=== PATIENT | male | born 1985 | race African-American/Black ===

== ENCOUNTER 2020-05-26 17:07 | Emergency (ER) | payer OTHER ==
[2020-05-26 17:58] VITALS: BP 126/71
--- NOTE | 2020-05-26 18:02 | ER Document Report ---
ED Medical Screen (RME) - General Chief Complaint: S/S of Possible Stroke Stated Complaint: HANDS,LEGS NUMBNESS Time Seen by Provider: 05/26/20 17:50 Primary Care Provider: KEVIN GARVEY [Primary Care Provider] - Follow up as needed Mode of Arrival: Ambulatory Information source: Patient Notes: 34-year-old man presents to ED for complaint of numbness to both arms and legs. He states he was at work when also he did not feel well he told his fellow fellow worker he did not feel well he states he was numb to his arms and legs and then he woke up at his dad's house. He states he remembers being okay at 3:00 but does not know what happened from then till when he woke up at his dad's house with somebody over him with a bag telling him to wake up to wake up wake up. He states he does not know how he got to his dad's house he does not know somebody took him or if he drove. I have greeted and performed a rapid initial assessment of this patient. A comprehensive ED assessment and evaluation of the patient, analysis of test results and completion of medical decision making process will be conducted by an additional ED providers. - Related Data Allergies/Adverse Reactions: No Known Allergies Allergy (Verified 05/26/20 17:51) Past Medical History - Social History Chew tobacco use (# tins/day): No Frequency of alcohol use: None Drug Abuse: None Physical Exam - Vital signs Vitals: Temp Pulse Resp BP Pulse Ox 97.6 F 89 18 130/79 H 96 05/26/20 17:15 05/26/20 17:15 05/26/20 17:15 05/26/20 17:15 05/26/20 17:15 Course - Vital Signs Vital signs: Temp Pulse Resp BP Pulse Ox 97.5 F 79 16 126/71 H 98 05/26/20 17:52 05/26/20 17:51 05/26/20 17:51 05/26/20 17:51 05/26/20 17:51 Doctor's Discharge - Discharge Referrals: KEVIN GARVEY [Primary Care Provider] - Follow up as needed
--- NOTE | 2020-05-26 18:30 | RADIOLOGY REPORT (SQ) ---
EXAM DESCRIPTION: CT HEAD WITHOUT IMAGES COMPLETED DATE/TIME: 05/26/2020 6:17 pm REASON FOR STUDY: Is felt numb then woke up at dad's house possible COMPARISON: None. TECHNIQUE: Axial images acquired through the brain without intravenous contrast. Images reviewed wit h bone, brain and subdural windows. Images stored on PACS. All CT scanners at this facility use dose modulation, iterative reconstruction, and/or weight based d osing when appropriate to reduce radiation dose to as low as reasonably achievable (ALARA). [facility]: Dose Right [facility]: CareDose [facility]: Dose Right [facility]: Teradose 4D [facility]: HCDC RADIATION DOSE: CT Rad equipment meets quality standard of care and radiation dose reduction techniq ues were employed. CTDIvol: 53.2 mGy. DLP: 1017 mGy-cm.. LIMITATIONS: None. FINDINGS: VENTRICLES: Normal size and contour. CEREBRUM: No masses. No hemorrhage. No midline shift. Age appropriate white matter. No evidence for a cute infarction. CEREBELLUM: No masses. No hemorrhage. No alteration of density. No evidence for acute infarction. EXTRA-AXIAL SPACES: No fluid collections. ORBITS AND GLOBE: No intra- or extraconal masses. Normal contour of globe without masses. CALVARIUM: No fracture. PARANASAL SINUSES: No fluid or mucosal thickening. SOFT TISSUES: No mass or hematoma. OTHER: No other significant finding. IMPRESSION: NO ACUTE INTRACRANIAL FINDINGS. EVIDENCE OF ACUTE STROKE: NO. COMMENT: Results were called to the emergency room at 1825 hours. TECHNICAL DOCUMENTATION: JOB ID: [id number] [place]-72 Quality ID # [id number]: Final reports with documentation of one or more dose reduction techniques (e.g., Au tomated exposure control, adjustment of the mA and/or kV according to patient size, use of iterative reconstruction technique) 2010 [employer]- All Rights Reserved Reading location - IP/workstation name: [email or web address]
--- NOTE | 2020-05-26 18:31 | RADIOLOGY REPORT (SQ) ---
EXAM DESCRIPTION: CHEST SINGLE VIEW IMAGES COMPLETED DATE/TIME: 05/26/2020 6:19 pm REASON FOR STUDY: Is felt numb then woke up at dad's house possible COMPARISON: None. TECHNIQUE: Single frontal radiographic view of the chest acquired. NUMBER OF VIEWS: One view. LIMITATIONS: None. FINDINGS: LUNGS AND PLEURA: No pneumothorax. No consolidation or pleural effusion. MEDIASTINUM AND HILAR STRUCTURES: No contour abnormalities. HEART AND VASCULAR STRUCTURES: Heart normal size. BONES: No acute findings. HARDWARE: None in the chest. OTHER: No other significant finding. IMPRESSION: NO ACUTE FINDINGS. TECHNICAL DOCUMENTATION: JOB ID: [id number] [place]-72 2010 [employer]- All Rights Reserved Reading location - IP/workstation name: [email or web address]
[2020-05-26 18:47] LABS: ABSOLUTE EOSINOPHILS # (AUTO) 0.2 10^3/uL (0.0-0.6); ABSOLUTE LYMPHOCYTES (AUTO) 1.8 10^3/uL (0.5-4.7); ABSOLUTE MONOCYTES (AUTO) 0.3 10^3/uL (0.1-1.4); ABSOLUTE NEUT (AUTO) 1.6 10^3/uL (1.7-8.2); BASOPHILS % (AUTO) 1.2 % (0-2); HEMATOCRIT 43.6 % (37.9-51.0); HEMOGLOBIN 15.5 g/dL (13.5-17.0); LYMPHOCYTES % (AUTO) 45.5 % (13-45); MEAN CORPUSCULAR HEMOGLOBIN 30.1 pg (27.0-33.4); MEAN CORPUSCULAR HGB CONC 35.6 g/dL (32.0-36.0); MEAN CORPUSCULAR VOLUME 85 fl (80-97); MONOCYTES % (AUTO) 8.4 % (3-13); PLATELET COUNT 219 10^3/uL (150-450); RED BLOOD COUNT 5.17 10^6/uL (4.35-5.55); RED CELL DISTRIBUTION WIDTH 13.2 % (11.5-14.0); SEGMENTED NEUTROPHILS % (AUTO) 40.9 % (42-78); TOTAL CELLS COUNTED % (AUTO) 100 %; WHITE BLOOD COUNT 3.9 10^3/uL (4.0-10.5)
[2020-05-26 18:49] LABS: APPEARANCE,URINE CLEAR; BILIRUBIN,URINE NEGATIVE (NEGATIVE); COLOR,URINE YELLOW; GLUCOSE, URINE NEGATIVE (NEGATIVE); KETONES,URINE 20 mg/dL (NEGATIVE); LEUKOCYTE ESTERASE,URINE NEGATIVE (NEGATIVE); NITRITE,URINE NEGATIVE (NEGATIVE); PROTEIN,URINE 30 mg/dL (NEGATIVE); URINE SPECIFIC GRAVITY 1.021
[2020-05-26 18:54] LABS: INTERNATIONAL RATION (INR) 1.03; PARTIAL THROMBOPLASTIN TIME 28.6 SEC (23.5-35.8); PROTHROMBIN TIME 13.7 SEC (11.4-15.4)
[2020-05-26 19:08] LABS: URINE AMPHETAMINES SCREEN NEGATIVE; URINE BARBITURATES SCREEN NEGATIVE; URINE BENZODIAZEPINES SCREEN NEGATIVE; URINE COCAINE SCREEN NEGATIVE; URINE MARIJUANA (THC) SCREEN NEGATIVE; URINE METHADONE SCREEN NEGATIVE; URINE PHENCYCLIDINE SCREEN NEGATIVE
[2020-05-26 19:20] LABS: ALBUMIN 4.7 g/dL (3.5-5.0); ALKALINE PHOSPHATASE 68 U/L (38-126); ANION GAP 10 (5-19); ASPARTATE AMINO TRANSFERASE 27 U/L (17-59); BILIRUBIN,DIRECT 0.2 mg/dL (0.0-0.4); BILIRUBIN,TOTAL 0.7 mg/dL (0.2-1.3); BLOOD UREA NITROGEN 11 mg/dL (7-20); CALCIUM 9.5 mg/dL (8.4-10.2); CARBON DIOXIDE 29 mmol/L (22-30); CHLORIDE 101 mmol/L (98-107); CREATINE KINASE 154 U/L (55-170); GLUCOSE 103 mg/dL (75-110); POTASSIUM 3.8 mmol/L (3.6-5.0); TOTAL PROTEIN 7.7 g/dL (6.3-8.2)
[2020-05-26 19:30] LABS: TROPONIN I < 0.012 ng/mL
--- NOTE | 2020-05-26 23:44 | ER Document Report ---
Entered by ELISABETH HAMM SCRIBE 05/26/20 [id number] Acting as scribe for:LETHA SHELTON DO ED General - General Chief Complaint: S/S of Possible Stroke Stated Complaint: HANDS,LEGS NUMBNESS Time Seen by Provider: 05/26/20 17:50 Primary Care Provider: KEVIN GARVEY [Primary Care Provider] - Follow up as needed Mode of Arrival: Ambulatory Information source: Patient Notes: This 34 year old male patient presents to the emergency department today with complaints of left sided numbness and bilateral hands feeling stiff. Patient states he was fine this morning and around 3 pm today he was nauseous and dry heaving. Patient states the left side of his body began to feel numb and his hands were stiff "like carpal tunnel". Patient states he blacked out and woke up at his dads house. Patient states his dad told him he drove there, which is a 3- [address], but he does not remember this. 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 Patient reports headaches everyday for the past x2 months. Denies any fever, diarrhea, chest pain, shortness of breath, or covid exposure. - Related Data Allergies/Adverse Reactions: No Known Allergies Allergy (Verified 05/26/20 17:51) Past Medical History - General Information source: Patient - Social History Smoking Status: Never Smoker Cigarette use (# per day): No Chew tobacco use (# tins/day): No Frequency of alcohol use: None Drug Abuse: None Lives with: Family Family History: CVA Patient has homicidal ideation: No Psychiatric Medical History: Reports: Hx Depression, Hx Post Traumatic Stress Disorder Review of Systems - Review of Systems Constitutional: See HPI. denies: Fever EENT: No symptoms reported Cardiovascular: See HPI. denies: Chest pain Respiratory: See HPI. denies: Short of breath Gastrointestinal: See HPI, Nausea. denies: Diarrhea Genitourinary: No symptoms reported Male Genitourinary: No symptoms reported Musculoskeletal: See HPI, Muscle stiffness - bilateral hands Skin: No symptoms reported Hematologic/Lymphatic: No symptoms reported Neurological/Psychological: See HPI, Headaches, Numbness - L sided -: Yes All other systems reviewed and negative Physical Exam - Vital signs Vitals: Temp Pulse Resp BP Pulse Ox 97.6 F 89 18 130/79 H 96 05/26/20 17:15 05/26/20 17:15 05/26/20 17:15 05/26/20 17:15 05/26/20 17:15 - General General appearance: Appears well, Alert - HEENT Head: Normocephalic, Atraumatic Eyes: Normal Pupils: PERRL - Respiratory Respiratory status: No respiratory distress Chest status: Nontender Breath sounds: Normal Chest palpation: Normal - Cardiovascular Rhythm: Regular Heart sounds: Normal auscultation Murmur: No - Abdominal Inspection: Normal Distension: No distension Bowel sounds: Normal Tenderness: Nontender - Extremities General upper extremity: Normal inspection, Normal ROM General lower extremity: Normal inspection, Normal ROM. No: Edema - Neurological Neuro grossly intact: Yes Cognition: Normal Orientation: AAOx4 Suni Coma Scale Eye Opening: Spontaneous [place] Coma Scale Verbal: Oriented Suni Coma Scale Motor: Obeys Commands [place] Coma Scale Total: 15 Speech: Normal Motor strength normal: LUE, RUE, LLE, RLE Sensory: Normal - Psychological Associated symptoms: Normal affect, Normal mood - Skin Skin Temperature: Warm Skin Moisture: Dry Skin Color: Normal Course - Re-evaluation Re-evalutation: 05/26/20 23:39 MDM 34 year old with PTSD and headaches for 2 months drove himself from work to dad's home earlier tonight. Does not remeber those events. Hands felt sore "Like carpal tunnel" for a period of time and then felt numb. Feels better now just tired. Stress level is high here also, but tells me he sees a therapist, has no si or hi and will follow up. He understands return precautions. - Vital Signs Vital signs: Temp Pulse Resp BP Pulse Ox 97.5 F 79 16 126/71 H 98 05/26/20 17:52 05/26/20 17:51 05/26/20 17:51 05/26/20 17:51 05/26/20 17:51 - Laboratory Result Diagrams: 05/26/20 18:27 05/26/20 18:27 Laboratory results interpreted by me: 05/26/20 05/26/20 18:27 18:27 WBC 3.9 L Lymph % (Auto) 45.5 H Absolute Neuts (auto) 1.6 L Seg Neutrophils % 40.9 L Urine Protein 30 H Urine Ketones 20 H Urine Urobilinogen 4.0 H Discharge - Discharge Clinical Impression: History of paresthesia, PTSD (post-traumatic stress disorder) Headache Qualifiers: Headache type: unspecified Headache chronicity pattern: acute headache Intractability: not intractable Qualified Code(s): R51.9 - Headache, unspecified Condition: Stable Disposition: HOME, SELF-CARE Instructions: Headache ([facility]), Post-Traumatic Stress Disorder ([facility]), Weakness ([facility]) Additional Instructions: See your doctor in follow up. No work for the next 2 days. Please return here for chest pain, shortness of breath or other problems or other concerns. Referrals: LOCAL[facility],NO [Primary Care Provider] - Follow up as needed I personally performed the services described in the documentation, reviewed and edited the documentation which was dictated to the scribe in my presence, and it accurately records my words and actions.
--- NOTE | 2020-05-27 08:54 | EKG REPORT ---
SEVERITY:- ABNORMAL ECG - SINUS RHYTHM CONSIDER LEFT VENTRICULAR HYPERTROPHY : Confirmed by: Emerita Bonner MD 27-May-2020 08:54:27
== END 2020-05-27 00:19 | disposition home or self-care (01) ==
LOC: ER 17:07
DX: R51.9 Headache, unspecified (principal); F43.10 Post-traumatic stress disorder, unspecified; R20.0 Anesthesia of skin
CPT/HCPCS: 36415; 70450; 71045; 80053; 80307; 81001; 82550; 82553; 84484; 85025; 85610; 85730; 93005; 93010; 99285